=== PATIENT | female | born 1995 ===

== ENCOUNTER 2018-04-25 20:10 | Emergency (ER) | payer MEDICAID ==
[2018-04-25 20:18] VITALS: BP 127/86
--- NOTE | 2018-04-25 20:37 | NUR ---
Assumed care of patient. C/O RLQ pain, yellow-han vaginal discharge, and vaginal itching. Given diflucan and vaginal cream but patient states "the cream is irritating it more". Mother at bedside. Will continue to monitor.
--- NOTE | 2018-04-25 21:01 | NUR ---
Report to JEREMIE Lockett.
[2018-04-25 21:04] LABS: CLUE CELLS NONE SEEN (NONE SEEN); WET PREP WBCS FEW (FEW)
[2018-04-25 21:10] LABS: CULTURE INDICATED? YES; MICROSCOPIC INDICATED
[2018-04-25] MEDS ORDERED: AZITHROMYCIN 250 MG TABLET PO ONE (21:10)
[2018-04-25 21:11] LABS: BASOPHILS # (AUTO) 0.12 x10^3/uL (0-0.1); BASOPHILS % (AUTO) 1 % (0-1); EOSINOPHILS # (AUTO) 0.35 x10^3/uL (0-0.4); EOSINOPHILS % (AUTO) 4 % (1-7); LYMPHOCYTES # (AUTO) 3.47 x10^3/uL (1-3.4); LYMPHOCYTES % (AUTO) 39 % (22-44); MD NO; MEAN CORPUSCULAR HEMOGLOBIN 32.4 pg (27.0-34.8); MEAN CORPUSCULAR HGB CONC 34.1 g/dL (32.4-35.8); MEAN PLATELET VOLUME 9.5 fL (7.4-10.4); MONOCYTES # (AUTO) 0.56 x10^3/uL (0.2-0.8); MONOCYTES % (AUTO) 6 % (2-9); NEUTROPHILS # (AUTO) 4.46 x10^3/uL (1.8-6.8); NEUTROPHILS % (AUTO) 50 % (42-75); PLATELET COUNT 311 x10^3/uL (130-400); RED BLOOD COUNT 4.84 x10^6/uL (3.82-5.3); RED CELL DISTRIBUTION WIDTH 12.3 % (9.6-15.2)
[2018-04-25 21:21] LABS: ALBUMIN 4.1 g/dL (3.4-5.0); ANION GAP 7 mmol/L (5-15); CALCIUM 9.1 mg/dL (8.5-10.1); CHLORIDE 110 mmol/L (98-107); CREATININE 0.87 mg/dL (0.55-1.02)
[2018-04-25] MEDS ORDERED: CEFTRIAXONE 250 MG ONE (21:21)
[2018-04-25] MEDS ORDERED: AZITHROMYCIN 250 MG TABLET ONE (21:21)
--- NOTE | 2018-04-25 21:25 | NUR ---
received REPORT FROM MYNOR CHAO. PT GOING TO US AT THIS TIME. PT HAS CHANGED INTO A HOSPITAL GOWN. PT GIVEN WARM BLANKET.
[2018-04-25] MEDS ORDERED: CEFTRIAXONE 250 MG IM ONE (21:30)
== END 2018-04-25 23:00 | disposition other institution (70) ==
LOC: ED 22:14
DX: A64 Unspecified sexually transmitted disease (principal); N89.8 Other specified noninflammatory disorders of vagina
CPT/HCPCS: 36415; 76856; 80048; 81001; 82040; 84703; 85025; 87086; 87210; 87491; 87591; 87808; 96372; 99284; J0696